=== PATIENT | female | born 1980 | race Two or more races ===

== ENCOUNTER 2019-10-06 09:53 | Emergency (ER) | payer OTHER ==
[~2019-10-06] VITALS: Ht 149.9 cm; Wt 81.6 kg
[2019-10-06 10:02] VITALS: BP 157/85
[2019-10-06] MEDS ORDERED: CLINDAMYCIN 600MG IV 50 ML IV ONE (11:15)
== END 2019-10-06 12:14 | disposition home or self-care (01) ==
LOC: ER 09:53
DX: L03.319 Cellulitis of trunk, unspecified (principal)
CPT/HCPCS: 96365; 99284; J3490